=== PATIENT | male | born 1955 | race Caucasian/White ===

== ENCOUNTER 2017-08-05 16:33 | Observation (INO) | payer OTHER ==
--- NOTE | 2017-08-05 16:50 | PDOC ---
Rapid Medical Evaluation Time Seen by Provider: 08/05/17 16:48 Medical Evaluation: 08/05/17 16:48 I have performed a brief in person evaluation of this patient. The patient presents with chief complaint of : right rib pain after slip and fall in the bath tub hit right side on the tub edge. no head trauma. no dizzyness. Pertinent PE findings: TTP right rib area midaxilary line I have ordered the following: right ribs , chest xray The patient will proceed to the ER for further evaluation. 08/05/17 18:03 08/05/17 18:05 Discharge Disposition - Diagnosis Chest wall contusion Qualifiers: Encounter type: initial encounter Laterality: right Qualified Code(s): S20.211A - Contusion of right front wall of thorax, initial encounter - Discharge Dispostion Condition at time of disposition: Good - Referrals Referrals: Emmanuel Ibarra MD [Primary Care Provider] - - Patient Instructions Printed Discharge Instructions: Contusion Additional Instructions: Your x-ray was negative for fracture. Take Tylenol or Motrin as needed for pain until pain resolves - Post Discharge Activity
[2017-08-05] MEDS ORDERED: IBUPROFEN 400 MG TABLET (FP) PO ONE (17:41)
--- NOTE | 2017-08-05 17:49 | PDOC ---
History of Present Illness - General Chief Complaint: Injury Stated Complaint: PAIN Time Seen by Provider: 08/05/17 16:48 History Source: Patient - History of Present Illness Severity: moderate Associated Symptoms: denies: shortness of breath Past History - Past Medical History Allergies/Adverse Reactions: Allergies Allergy/AdvReac Type Severity Reaction Status Date / Time No Known Allergies Allergy Verified 08/05/17 16:49 COPD: No Diabetes: Yes HTN: Yes Hypercholesterolemia: Yes - Suicide/Smoking/Psychosocial Hx Smoking History: Never smoked Have you smoked in the past 12 months: No Information on smoking cessation initiated: No Hx Alcohol Use: No Drug/Substance Use Hx: No Substance Use Type: None Review of Systems - Review of Systems Respiratory: No: Cough, Shortness of Breath, Wheezing Cardiac (ROS): Yes: Chest Pain. No: Lightheadedness, Palpitations, Syncope *Physical Exam - Vital Signs Last Vital Signs Temp Pulse Resp BP Pulse Ox 97.6 F 80 12 140/71 100 08/05/17 16:49 08/05/17 16:49 08/05/17 16:49 08/05/17 16:49 08/05/17 16:49 - Physical Exam General Appearance: Yes: Appropriately Dressed. No: Apparent Distress Neck: positive: Supple, Other (significant crepitus to R supraclavicular fossa) . negative: Tender Respiratory/Chest: positive: Chest Tender (no step-offs), Lungs Clear, Normal Breath Sounds. negative: Respiratory Distress Cardiovascular: positive: Regular Rate, S1, S2 Integumentary: positive: Dry, Warm Neurologic: positive: Fully Oriented, Alert, Normal Mood/Affect Medical Decision Making - Medical Decision Making 08/05/17 17:48 52-year-old male history of diabetes and high blood pressure, here with right chest pain after falling in tub yesterday. States he slipped and fell striking right chest against edge of tub. States pain worse with deep inspiration, otherwise no shortness of breath. Denies hitting head or LOC. No headache, dizziness, nausea, vomiting and not on blood thinners. See exam High suspicion for rib fx w/ subcutaneous air Stable in ED w/ no resp distress -xray pending -transfer to main ED 08/05/17 18:11 Xray w/ possibly R 7th rib fracture w/ significant subcutaneous emphysema confirmed. Patient remained stable in ED, will transfer over to maintain ED. Dr. Gregorio aware *DC/Admit/Observation/Transfer Diagnosis at time of Disposition: Chest wall contusion Qualifiers: Encounter type: initial encounter Laterality: right Qualified Code(s): S20.211A - Contusion of right front wall of thorax, initial encounter - Discharge Dispostion Condition at time of disposition: Good - Referrals Referrals: Emmanuel Ibarra MD [Primary Care Provider] - - Patient Instructions Printed Discharge Instructions: Contusion Additional Instructions: Your x-ray was negative for fracture. Take Tylenol or Motrin as needed for pain until pain resolves - Post Discharge Activity
[2017-08-05] MEDS ORDERED: IBUPROFEN 600 MG TABLET (FP) PO ONE (18:25)
--- NOTE | 2017-08-05 19:00 | PDOC ---
*Physical Exam - Vital Signs Last Vital Signs Temp Pulse Resp BP Pulse Ox 97.6 F 80 12 140/71 100 08/05/17 16:49 08/05/17 16:49 08/05/17 16:49 08/05/17 16:49 08/05/17 16:49 <Misty Gregorio - Last Filed: 08/05/17 19:00> - Vital Signs Last Vital Signs Temp Pulse Resp BP Pulse Ox 97.6 F 80 12 140/71 100 08/05/17 16:49 08/05/17 16:49 08/05/17 16:49 08/05/17 16:49 08/05/17 16:49 - Physical Exam Comments: 08/05/17 19:29 The patient is a 52 year old male, with a significant past medical history of diabetes and high blood pressure, who presents to the emergency department with right sided chest pain. He reports that he slipped and fell in the tub yesterday and hit the right side of his chest against the edge of the tub. He states that the pain is worse with deep inspiration. Denies hitting head or LOC. It is noted that the patient has 10% pneumothorax currently, as well as 3 fractured ribs on the right side. The patient denies shortness of breath, headache and dizziness. Denies fever, chills, nausea, vomit, diarrhea and constipation. Allergies: None Past surgical history: None reported Social history: No alcohol, tobacco or drug use reported GENERAL: Awake, alert, and fully oriented, in no acute distress HEAD: No signs of trauma, normocephalic, atraumatic EYES: PERRLA, EOMI, sclera anicteric, conjunctiva clear ENT: Auricles normal inspection, hearing grossly normal, nares patent, oropharynx clear without exudates. Moist mucosa NECK: Neck: positive: Supple, Other (significant crepitus to R supraclavicular fossa). LUNGS: No distress, speaks full sentences, clear to auscultation bilaterally CHEST: (+) Chest Tender (no step-offs) HEART: Regular rate and rhythm, normal S1 and S2, no murmurs, rubs or gallops, peripheral pulses normal and equal bilaterally. ABDOMEN: Soft, nontender, normoactive bowel sounds. No guarding, no rebound. No masses EXTREMITIES : Normal inspection, Normal range of motion, no edema. No clubbing or cyanosis. NEUROLOGICAL: Cranial nerves II through XII grossly intact. Normal speech, normal gait, no focal sensorimotor deficits SKIN: Warm, Dry, normal turgor, no rashes or lesions noted <Montez Molina - Last Filed: 08/05/17 19:37> ED Treatment Course - Medications Given in the ED: ED Medications Discontinued Medications Generic Name Dose Route Start Last Admin Trade Name Freq PRN Reason Stop Dose Admin Ibuprofen 800 mg 08/05/17 17:41 08/05/17 18:25 Motrin - PO 08/05/17 17:42 800 mg ONCE ONE Administration <Misty Gregorio - Last Filed: 08/05/17 19:00> - LABORATORY CBC & Chemistry Diagram: 08/05/17 19:00 08/05/17 19:00 - Medications Given in the ED: ED Medications Discontinued Medications Generic Name Dose Route Start Last Admin Trade Name Freq PRN Reason Stop Dose Admin Ibuprofen 800 mg 08/05/17 17:41 08/05/17 18:25 Motrin - PO 08/05/17 17:42 800 mg ONCE ONE Administration <Montez Molina - Last Filed: 08/05/17 19:37> Medical Decision Making - Medical Decision Making 08/05/17 18:57 62-year-old male who fell yesterday in the bathroom tile when he slipped and hit right side of his rib cage. He put ice on the area, but he had persistent pain and came to the emergency department. In fast track. He had chest x-ray and rib x-rays that showed subcutaneous air and labs were fractures. I spoke to the radiologist, . there is a very small pneumothorax February last Patient will be admitted for incentive spirometer, pain control and repeat imaging <Misty Gregorio - Last Filed: 08/05/17 19:00> *DC/Admit/Observation/Transfer - Discharge Dispostion Admit: Yes <Misty Gregorio - Last Filed: 08/05/17 19:00> <Montez Molina - Last Filed: 08/05/17 19:37> Diagnosis at time of Disposition: Pneumothorax on right Chest wall contusion Qualifiers: Encounter type: initial encounter Laterality: right Qualified Code(s): S20.211A - Contusion of right front wall of thorax, initial encounter Multiple fractures of ribs of right side Qualifiers: Encounter type: initial encounter Fracture type: closed Qualified Code(s): S22.41XA - Multiple fractures of ribs, right side, initial encounter for closed fracture Subcutaneous air Qualifiers: Encounter type: initial encounter Qualified Code(s): T79.7XXA - Traumatic subcutaneous emphysema, initial encounter - Discharge Dispostion Condition at time of disposition: Good - Referrals Referrals: Emmanuel Ibarra MD [Primary Care Provider] - - Patient Instructions Printed Discharge Instructions: Contusion Additional Instructions: Your x-ray was negative for fracture. Take Tylenol or Motrin as needed for pain until pain resolves - Post Discharge Activity
[2017-08-05 19:29] LABS: BASO % 0.2 % (0-2.0); EOS % 0.5 % (0-4.5); HEMOGLOBIN 12.6 GM/dL (11.7-16.9); LYMPH % 19.7 % (8-40); MCH 34.2 pg (25.7-33.7); MCHC 34.1 g/dl (32.0-35.9); MEAN CELL VOLUME 100.4 fl (80-96); MEAN PLT VOLUME 8.4 fl (7.5-11.1); MONO % 5.8 % (3.8-10.2); NEUT % 73.8 % (42.8-82.8); PLATELET COUNT 199 K/MM3 (134-434); RBC 3.69 M/mm3 (4.00-5.60); RDW 13.5 % (11.9-15.9); WHITE BLOOD COUNT 6.8 K/mm3 (4.0-10.0)
[2017-08-05 19:51] LABS: ALBUMIN 4.2 g/dl (3.4-5.0); ALK PHOS 87 U/L (45-117); ANION GAP 10 (8-16); BILIRUBIN,TOTAL 0.5 mg/dL (0.2-1.0); BLOOD UREA NITROGEN 15 mg/dL (7-18); CALCIUM 8.6 mg/dL (8.5-10.1); CHLORIDE 100 mmol/L (98-107); CO2 24 mmol/L (21-32); GLUCOSE,RANDOM 197 mg/dL (74-106); POTASSIUM 4.1 mmol/L (3.5-5.1); SGOT/AST 58 U/L (15-37); SGPT/ALT 62 U/L (12-78); SODIUM 134 mmol/L (136-145); TOT PROT 7.2 g/dl (6.4-8.2)
[2017-08-05 20:22] LABS: INR 1.18 (0.82-1.09); PROTHROMBIN TIME (PATIENT) 13.3 SEC (9.98-11.88)
[2017-08-05 20:53] VITALS: BMI 29.2
[2017-08-05] MEDS ORDERED: PNEUMOC 13-VAL CONJ-DIP CRM/PF 0.5 ML DISP.SYRIN IM ONE (20:54)
[2017-08-05] MEDS ORDERED: FLU VACCINE QUAD 60 MCG/0.5 ML (MDV 17-18) IM ONE (20:54)
--- NOTE | 2017-08-05 20:59 | HP ---
Admitting History and Physical - Primary Care Physician PCP: Aleyda Sims - Admission History of Present Illness: 52 year old male, with a significant past medical history of diabetes and high blood pressure, who presents to the emergency department with right sided chest pain. He reports that he slipped and fell in the tub yesterday and hit the right side of his chest against the edge of the tub. He states that the pain is worse with deep inspiration. Denies hitting head or LOC. It is noted that the patient has 10% pneumothorax currently, as well as 3 fractured ribs on the right side. - Past Medical History Cardiovascular: Yes: HTN Endocrine: Yes: Diabetes Mellitus - Smoking History Smoking history: Never smoked Have you smoked in the past 12 months: No - Alcohol/Substance Use Hx Alcohol Use: No Home Medications - Allergies Allergies/Adverse Reactions: Allergies Allergy/AdvReac Type Severity Reaction Status Date / Time No Known Allergies Allergy Verified 08/05/17 20:21 - Home Medications Home Medications: Ambulatory Orders Aspirin [ASA -] 81 mg PO DAILY 08/05/17 Losartan Potassium 50 mg PO DAILY 08/05/17 Simvastatin 20 mg PO DAILY 08/05/17 metFORMIN HCL [Glucophage -] 500 mg PO BID 08/05/17 Physical Examination Vital Signs: Vital Signs Temperature 97.6 F 08/05/17 16:49 Pulse Rate 80 08/05/17 16:49 Respiratory Rate 12 08/05/17 16:49 Blood Pressure 140/71 08/05/17 16:49 O2 Sat by Pulse Oximetry (%) 100 08/05/17 16:49 Constitutional: Yes: Calm HENT: Yes: Atraumatic Neck: Yes: Supple Cardiovascular: Yes: Regular Rate and Rhythm Respiratory: Yes: Rhonchi, Other (R chest wall tenderness no bruise) Gastrointestinal: Yes: Normal Bowel Sounds Extremities: Yes: WNL Neurological: Yes: Alert Labs: CBC, BMP 08/05/17 19:00 08/05/17 19:00 Problem List - Problems (1) Chest wall contusion Assessment/Plan: prn pain meds doing well in breathing Code(s): S20.219A - CONTUSION OF UNSPECIFIED FRONT WALL OF THORAX, INIT ENCNTR Qualifiers: Encounter type: initial encounter Laterality: right Qualified Code(s): S20.211A - Contusion of right front wall of thorax, initial encounter (2) Multiple fractures of ribs of right side Assessment/Plan: 3 ribs...lower thoracic on R side Code(s): S22.41XA - MULTIPLE FRACTURES OF RIBS, RIGHT SIDE, INIT FOR CLOS FX Qualifiers: Encounter type: initial encounter Fracture type: closed Qualified Code(s) : S22.41XA - Multiple fractures of ribs, right side, initial encounter for closed fracture (3) Pneumothorax on right Assessment/Plan: will fu cxr tomorrow incentive spirometery Code(s): J93.9 - PNEUMOTHORAX, UNSPECIFIED (4) Subcutaneous air Code(s): T79.7XXA - TRAUMATIC SUBCUTANEOUS EMPHYSEMA, INITIAL ENCOUNTER Qualifiers: Encounter type: initial encounter Qualified Code(s): T79.7XXA - Traumatic subcutaneous emphysema, initial encounter Assessment/Plan Laboratory Tests 08/05/17 08/05/17 08/05/17 19:00 19:00 19:00 WBC 6.8 RBC 3.69 L Hgb 12.6 Hct 37.0 MCV 100.4 H MCH 34.2 H MCHC 34.1 RDW 13.5 Plt Count 199 MPV 8.4 Neutrophils % 73.8 Lymphocytes % 19.7 Monocytes % 5.8 Eosinophils % 0.5 Basophils % 0.2 PT with INR 13.30 H INR 1.18 H Sodium 134 L Potassium 4.1 Chloride 100 Carbon Dioxide 24 Anion Gap 10 BUN 15 Creatinine 1.0 Creat Clearance w eGFR > 60 Random Glucose 197 H Calcium 8.6 Total Bilirubin 0.5 AST 58 H ALT 62 Alkaline Phosphatase 87 Total Protein 7.2 Albumin 4.2 Active Medications Generic Name Dose Route Start Last Admin Trade Name Freq PRN Reason Stop Dose Admin Atorvastatin Calcium 10 mg 08/05/17 22:00 08/05/17 23:02 Lipitor - PO 10 mg HS VICKY Administration Ibuprofen 600 mg 08/05/17 21:04 Motrin - PO Q6H PRN FEVER Losartan Potassium 50 mg 08/06/17 10:00 08/06/17 11:11 Cozaar - PO 50 mg DAILY VICKY Administration Metformin HCl 500 mg 08/06/17 07:00 08/06/17 06:21 Glucophage - PO 500 mg BIDAC VICKY Administration
[2017-08-05] MEDS: ATORVASTATIN CA 10 MG TABLET (FP) PO SCH (23:02)
[2017-08-06] MEDS: metFORMIN HCL 500 MG TABLET (FP) PO SCH ×2 (06:21→18:26)
[2017-08-06 07:29] LABS: BASO % 0.2 % (0-2.0); EOS % 2.5 % (0-4.5); HEMATOCRIT 37.5 % (35.4-49); HEMOGLOBIN 12.6 GM/dL (11.7-16.9); LYMPH % 23.4 % (8-40); MCH 33.6 pg (25.7-33.7); MCHC 33.7 g/dl (32.0-35.9); MEAN CELL VOLUME 99.9 fl (80-96); MEAN PLT VOLUME 8.1 fl (7.5-11.1); MONO % 5.9 % (3.8-10.2); PLATELET COUNT 183 K/MM3 (134-434); RBC 3.75 M/mm3 (4.00-5.60); RDW 13.4 % (11.9-15.9); WHITE BLOOD COUNT 5.6 K/mm3 (4.0-10.0)
[2017-08-06 08:22] LABS: ALBUMIN 3.9 g/dl (3.4-5.0); ANION GAP 7 (8-16); BILIRUBIN,TOTAL 0.7 mg/dL (0.2-1.0); BLOOD UREA NITROGEN 14 mg/dL (7-18); CALCIUM 8.3 mg/dL (8.5-10.1); CHLORIDE 99 mmol/L (98-107); CO2 28 mmol/L (21-32); CREATININE 0.8 mg/dL (0.7-1.3); GLUCOSE,RANDOM 214 mg/dL (74-106); POTASSIUM 4.1 mmol/L (3.5-5.1); SGOT/AST 36 U/L (15-37); SGPT/ALT 48 U/L (12-78); SODIUM 134 mmol/L (136-145); TOT PROT 6.7 g/dl (6.4-8.2)
[2017-08-06 08:23] LABS: ALK PHOS 81 U/L (45-117)
[2017-08-06] MEDS ORDERED: PATIENT'S OWN MEDICATION (NON-FORMULARY) (Simvastatin [Simvastatin] 20 MG) PO SCH (10:00)
--- NOTE | 2017-08-06 10:11 | CON.PULM ---
Consult Consult Specialty:: PULM/CCM Referred by:: BINDU Reason for Consultation:: PTX - History of Present Illness Chief Complaint: S/P FALL : RIGHT CP History of Present Illness: 52 M, past medical history of diabetes and high blood pressure. S/P mechanical fall in his bathtub yesterday. He reports hitting his right chest wall. CXR: Rib fracture x 3, 10% Right PTX. Patient is in NAD on RA. He does report some right rib cage discomfort with movement and deep breathing. - History Source History Provided By: Patient Limitations to Obtaining History: No Limitations - Past Medical History Cardio/Vascular: Yes: HTN Endocrine: Yes: Diabetes Mellitus - Alcohol/Substance Use Hx Alcohol Use: No - Smoking History Smoking history: Never smoked Have you smoked in the past 12 months: No Home Medications - Allergies Allergies/Adverse Reactions: Allergies Allergy/AdvReac Type Severity Reaction Status Date / Time No Known Allergies Allergy Verified 08/05/17 20:21 - Home Medications Home Medications: Ambulatory Orders Aspirin [ASA -] 81 mg PO DAILY 08/05/17 Losartan Potassium 50 mg PO DAILY 08/05/17 Simvastatin 20 mg PO DAILY 08/05/17 metFORMIN HCL [Glucophage -] 500 mg PO BID 08/05/17 Review of Systems - Review of Systems Constitutional: denies: Chills, Fever, Malaise, Unintentional Wgt. Loss, Weakness Eyes: reports: No Symptoms HENT: reports: No Symptoms Neck: reports: No Symptoms Cardiovascular: reports: Chest Pain. denies: Palpitations, Shortness of Breath Respiratory: reports: SOB. denies: Cough, Exercise Intolerance, Hemoptysis, Orthopnea, PND, Snoring, SOB on Exertion, Wheezing Gastrointestinal: reports: No Symptoms Genitourinary: reports: No Symptoms Breasts: reports: No Symptoms Reported Musculoskeletal: reports: No Symptoms Integumentary: reports: No Symptoms Neurological: reports: No Symptoms Endocrine: reports: No Symptoms Hematology/Lymphatic: reports: No Symptoms Psychiatric: reports: No Symptoms Physical Exam Vital Sings: Vital Signs Temperature 97.9 F 08/06/17 05:00 Pulse Rate 64 08/06/17 05:00 Respiratory Rate 18 08/06/17 05:00 Blood Pressure 137/72 08/06/17 05:00 O2 Sat by Pulse Oximetry (%) 96 08/05/17 22:00 Constitutional: Yes: No Distress, Calm Eyes: Yes: Conjunctiva Clear, EOM Intact HENT: Yes: Atraumatic, Normocephalic Neck: Yes: Supple, Trachea Midline Cardiovascular: Yes: Regular Rate and Rhythm Respiratory: Yes: CTA Bilaterally. No: Accessory Muscle Use, Cough, Rales, Rhonchi, SOB, SOB on Exertion, Stridor, Tachypnea, Wheezes ...Inspection: Yes: WNL ...Palpation: Yes: Subcutaneous Emphysema, Tenderness ...Clubbing: No Gastrointestinal: Yes: Normal Bowel Sounds, Soft Renal/: Yes: WNL Breast(s): Yes: WNL Musculoskeletal: Yes: WNL Extremities: Yes: WNL Edema: No Peripheral Pulses WNL: Yes Integumentary: Yes: WNL Neurological: Yes: WNL, Alert, Oriented ...Motor Strength: WNL Psychiatric: Yes: WNL, Alert, Oriented Labs: CBC, BMP 08/06/17 06:00 08/06/17 06:00 Imaging - Results Chest X-ray: Report Reviewed, Image Reviewed Problem List - Problems (1) Chest wall contusion Code(s): S20.219A - CONTUSION OF UNSPECIFIED FRONT WALL OF THORAX, INIT ENCNTR Qualifiers: Encounter type: initial encounter Laterality: right Qualified Code(s): S20.211A - Contusion of right front wall of thorax, initial encounter (2) Multiple fractures of ribs of right side Code(s): S22.41XA - MULTIPLE FRACTURES OF RIBS, RIGHT SIDE, INIT FOR CLOS FX Qualifiers: Encounter type: initial encounter Fracture type: closed Qualified Code(s) : S22.41XA - Multiple fractures of ribs, right side, initial encounter for closed fracture (3) Pneumothorax on right Code(s): J93.9 - PNEUMOTHORAX, UNSPECIFIED (4) Subcutaneous air Code(s): T79.7XXA - TRAUMATIC SUBCUTANEOUS EMPHYSEMA, INITIAL ENCOUNTER Qualifiers: Encounter type: initial encounter Qualified Code(s): T79.7XXA - Traumatic subcutaneous emphysema, initial encounter Assessment/Plan Supplemental O2 Pain control Incentive Spirometry Repeat CXR this afternoon: If PTX Stable or improved can likely D/C Home VTE prophylaxis Will follow. Thank you. Dr Del Rio
[2017-08-06] MEDS: LOSARTAN POTASSIUM 50 MG TABLET (FP) PO SCH (11:11)
--- NOTE | 2017-08-06 11:29 | EKG ---
Test Reason : Blood Pressure : / mmHG Vent. Rate : 082 BPM Atrial Rate : 082 BPM P-R Int : 154 ms QRS Dur : 086 ms QT Int : 382 ms P-R-T Axes : 057 001 067 degrees QTc Int : 446 ms NORMAL SINUS RHYTHM NORMAL ECG WHEN COMPARED WITH ECG OF 29-SEP-2009 12:21, NO SIGNIFICANT CHANGE WAS FOUND Confirmed by MD Lorenzo Daniel ([id number]) on 08/06/2017 11:29:14 AM Referred By: Confirmed By:Syed Lorenzo MD
--- NOTE | 2017-08-06 15:53 | PN ---
Progress Note (short form) - Note Progress Note: Pt seen and examined. He is a 62 year old male pt 1 day s/p fall on the tub, c/ o pain R flank. In the ER xrays were done which confirmed 3 right lower thoracic rib fractures. 10% pneumothorax No trouble breathing Mild pain in the right flank with deep inspiration Xrays- as above Imp-3 right lower thoracic rib fractures. No trouble breathing. Mild pain. Rec-NTD from an orthopedic pov. Will follow PRN
--- NOTE | 2017-08-06 18:07 | PN ---
Progress Note, Physician History of Present Illness: feeling good - Current Medication List Current Medications: Active Medications Atorvastatin Calcium (Lipitor -) 10 mg PO HS [facility] Last Admin: 08/05/17 23:02 Dose: 10 mg Ibuprofen (Motrin -) 600 mg PO Q6H PRN PRN Reason: FEVER Losartan Potassium (Cozaar -) 50 mg PO DAILY [facility] Last Admin: 08/06/17 11:11 Dose: 50 mg Metformin HCl (Glucophage -) 500 mg PO BIDAC [facility] Last Admin: 08/06/17 06:21 Dose: 500 mg - Objective Vital Signs: Vital Signs Temperature 97.5 F L 08/06/17 17:53 Pulse Rate 72 08/06/17 17:53 Respiratory Rate 18 08/06/17 17:53 Blood Pressure 148/82 08/06/17 17:53 O2 Sat by Pulse Oximetry (%) 98 08/06/17 13:01 Constitutional: Yes: No Distress HENT: Yes: Atraumatic Neck: Yes: Supple Cardiovascular: Yes: Regular Rate and Rhythm Respiratory: Yes: CTA Bilaterally Gastrointestinal: Yes: Normal Bowel Sounds Musculoskeletal: Yes: Other (chest wall miniimal tenderness R no bruise some air in tissues) Extremities: Yes: WNL Neurological: Yes: Alert, Oriented Labs: CBC, BMP 08/06/17 06:00 08/06/17 06:00 INR, PTT INR 1.18 (0.82-1.09) H 08/05/17 19:00 Problem List - Problems (1) Chest wall contusion Assessment/Plan: prn pain meds doing well in breathing Code(s): S20.219A - CONTUSION OF UNSPECIFIED FRONT WALL OF THORAX, INIT ENCNTR Qualifiers: Encounter type: initial encounter Laterality: right Qualified Code(s): S20.211A - Contusion of right front wall of thorax, initial encounter (2) Multiple fractures of ribs of right side Assessment/Plan: 3 ribs...lower thoracic on R side Code(s): S22.41XA - MULTIPLE FRACTURES OF RIBS, RIGHT SIDE, INIT FOR CLOS FX Qualifiers: Encounter type: initial encounter Fracture type: closed Qualified Code(s) : S22.41XA - Multiple fractures of ribs, right side, initial encounter for closed fracture (3) Pneumothorax on right Assessment/Plan: will fu cxr done today, report pending incentive spirometery Code(s): J93.9 - PNEUMOTHORAX, UNSPECIFIED (4) Subcutaneous air Code(s): T79.7XXA - TRAUMATIC SUBCUTANEOUS EMPHYSEMA, INITIAL ENCOUNTER Qualifiers: Encounter type: initial encounter Qualified Code(s): T79.7XXA - Traumatic subcutaneous emphysema, initial encounter
[2017-08-06] MEDS: IBUPROFEN 600 MG TABLET (FP) PO PRN (18:25)
[2017-08-06] MEDS: ATORVASTATIN CA 10 MG TABLET (FP) PO SCH (21:27)
[2017-08-07] MEDS: metFORMIN HCL 500 MG TABLET (FP) PO SCH (06:40)
--- NOTE | 2017-08-07 10:05 | PN ---
Progress Note (short form) - Note Progress Note: IMROVING LESS PAIN USING INCENTIVE SPIROMTER WITH MINIMAL DISCOMFORT PLAN: DC TO HOME IF MEDICALLY OKAY, F/U X 2 WEEKS
[2017-08-07] MEDS: LOSARTAN POTASSIUM 50 MG TABLET (FP) PO SCH (10:23)
[2017-08-07] MEDS: IBUPROFEN 600 MG TABLET (FP) PO PRN (10:23)
--- NOTE | 2017-08-07 12:16 | DS ---
Physical Examination Vital Signs: Vital Signs Temperature 98.8 F 08/07/17 05:00 Pulse Rate 73 08/07/17 05:00 Respiratory Rate 20 08/07/17 05:00 Blood Pressure 135/75 08/07/17 05:00 O2 Sat by Pulse Oximetry (%) 98 08/07/17 05:00 Labs: CBC, BMP 08/06/17 06:00 08/06/17 06:00 Discharge Summary Reason For Visit: SUBQ EMPHYSEMA, MULT.FRACTURES OF RIB RT,CONTUSION Current Active Problems Chest wall contusion (Acute) Multiple fractures of ribs of right side (Acute) Pneumothorax on right (Acute) Subcutaneous air (Acute) Condition: Good - Instructions Diet, Activity, Other Instructions: Your x-ray was negative for fracture. Take Tylenol or Motrin as needed for pain until pain resolves Referrals: Emmanuel Ibarra MD [Primary Care Provider] - - Home Medications Comprehensive Discharge Medication List: Ambulatory Orders Aspirin [ASA -] 81 mg PO DAILY 08/05/17 Losartan Potassium 50 mg PO DAILY 08/05/17 Simvastatin 20 mg PO DAILY 08/05/17 metFORMIN HCL [Glucophage -] 500 mg PO BID 08/05/17
[2017-08-07 14:35] VITALS: BP 140/74; PULSE 73; TEMP 97.8
--- NOTE | 2017-08-07 15:13 | PN ---
Progress Note (short form) - Note Progress Note: PULMONARY VSS/AFEBRILE WANTS TO GO HOME NO SOB ANICTERIC SUB-Q EMPHYSEMA ON RIGHT S1S2 BS+ NO EDEMA LABS/IMAGES/NOTES REVIEWED OK FOR D/C R JENNIFER PHELPS
== END 2017-08-07 16:44 | disposition home or self-care (01) ==
LOC: JERFT 16:33 → JER 16:33 → INTOOBSV 19:03 → JERBED 19:03 → J7W 20:38
PROVIDERS: ADMIT Internal Medicine; ATTEND Internal Medicine
DX: S20.211A Contusion of right front wall of thorax, initial encounter (principal); S22.41XA Multiple fractures of ribs, right side, initial encounter for closed fracture; T79.7XXA Traumatic subcutaneous emphysema, initial encounter; I10 Essential (primary) hypertension; E11.9 Type 2 diabetes mellitus without complications; E78.5 Hyperlipidemia, unspecified; J93.9 Pneumothorax, unspecified; Z79.82 Long term (current) use of aspirin; Z79.84 Long term (current) use of oral hypoglycemic drugs; W01.198A Fall on same level from slipping, tripping and stumbling with subsequent striking against other object, initial encounter; Y93.E1 Activity, personal bathing and showering; Y92.002 Bathroom of unspecified non-institutional (private) residence as the place of occurrence of the external cause
CPT/HCPCS: 36415; 71046-TC-FY; 71101-TC-RT-FY; 80053; 82550; 82553; 82962; 84484; 85025; 85610; 93005; 93010; 94010; 99285-25; G0378

== ENCOUNTER 2021-09-16 22:16 | Inpatient (IN) | payer MEDICARE, OTHER ==
[2021-09-16 22:35] VITALS: BMI 26.6
[2021-09-16] MEDS ORDERED: SODIUM CHLORIDE 2,313 ML IV ONE (23:12)
[2021-09-16] MEDS ORDERED: ACETAMINOPHEN 325 MG TABLET (FP) PO ONE (23:13)
[2021-09-16] MEDS ORDERED: SODIUM CHLORIDE 0.9% 500 ML INFUS.BAG IV ONE (23:29)
[2021-09-16] MEDS ORDERED: ACETAMINOPHEN 325 MG TABLET (FP) ONE (23:54)
[2021-09-16 23:58] LABS: BASO % 0.2 % (0-2.0); EOS % 0.1 % (0-4.5); HEMATOCRIT 32.7 % (35.4-49); HEMOGLOBIN 11.4 GM/dL (11.7-16.9); LYMPH % 4.9 % (8-40); MCHC 34.9 g/dl (32.0-35.9); MEAN CELL VOLUME 91.9 fl (80-96); MEAN PLT VOLUME 7.9 fl (7.5-11.1); MONO % 6.3 % (3.8-10.2); NEUT % 88.5 % (42.8-82.8); PLATELET COUNT 263 10^3/uL (134-434); RBC 3.56 M/mm3 (4.00-5.60); RDW 13.3 % (11.9-15.9); WHITE BLOOD COUNT 10.8 K/mm3 (4.0-10.0)
[2021-09-17 00:02] LABS: VENOUS BASE EXCESS -2.8 mmol/L (-2-2); VENOUS O2 SATURATION 26.5 % (70-80); VENOUS PCO2 31.9 mmHg (38-52); VENOUS PH 7.43 (7.310-7.410)
[2021-09-17 00:18] LABS: CHLORIDE 101 mmol/L (98-107); SODIUM 135 mmol/L (136-145)
[2021-09-17 00:20] LABS: CALCIUM 8.9 mg/dL (8.5-10.1)
[2021-09-17 00:22] LABS: ALBUMIN 3.4 g/dl (3.4-5.0); ANION GAP 10 MMOL/L (8-16); CO2 24 mmol/L (21-32); GLUCOSE,RANDOM 302 mg/dL (74-106)
[2021-09-17 00:24] LABS: CREATININE 1.1 mg/dL (0.55-1.3); SGOT/AST 11 U/L (15-37); SGPT/ALT 16 U/L (13-61)
[2021-09-17 00:26] LABS: BILIRUBIN,TOTAL 0.7 mg/dL (0.2-1); TOT PROT 7.3 g/dl (6.4-8.2)
[2021-09-17 00:27] LABS: ALK PHOS 115 U/L (45-117)
[2021-09-17 00:53] LABS: INR 1.35 (0.83-1.09); PROTHROMBIN TIME (PATIENT) 15.6 SEC (9.7-13.0)
[2021-09-17 00:56] LABS: ACTIVATED PTT 38.3 SECONDS (25.2-36.5)
[2021-09-17] MEDS ORDERED: VANCOMYCIN 1 GM in D5W (PRE-DOCKED) 1,000 MG/250 ML IVPB ONE (01:09)
[2021-09-17] MEDS ORDERED: PIPERACILLIN/TAZOB 4.5 GM 4.5 GM in DEXTROSE 5%-WATER 100 ML IVPB ONE (01:09)
[2021-09-17] MEDS ORDERED: VANCOMYCIN 1 GRAM (PRE-DOCKED) 1,000 MG/250 ML BAG IVPB ONE (01:16)
[2021-09-17] MEDS ORDERED: PIPERACILLIN/TAZOB 4.5 GM 4.5 GM/100 ML BAG IVPB ONE (01:16)
[2021-09-17] MEDS: SODIUM CHLORIDE 1,000 ML IV SCH (04:33)
[2021-09-17] MEDS: INSULIN SLIDING SCALE (NOVOLOG) 1 VIAL SQ SCH ×4 (06:22→22:05)
[2021-09-17] MEDS ORDERED: DEXTROSE 5%-WATER - 50 ML IVPB ONE ×3 (08:59→21:41)
[2021-09-17] MEDS ORDERED: PIPERACILLIN/TAZOBACTAM 3.375 GM VIAL IVPB ONE ×3 (08:59→21:41)
[2021-09-17] MEDS: PIPERACILLIN/TAZOB 3.375 GM 3.375 GM in DEXTROSE 5%-WATER - 50 ML IVPB SCH ×3 (09:07→22:05)
[2021-09-17] MEDS: ENOXAPARIN NA (PORCINE) 40 MG/0.4 ML DISP.SYRIN SQ SCH (09:08)
[2021-09-17 09:29] LABS: URINE APPEARANCE CLOUDY; URINE BILIRUBIN NEGATIVE (NEGATIVE); URINE COLOR YELLOW
[2021-09-17 09:30] LABS: EPI CELLS 8.9 /uL (0-25.1); URINE KETONE 15 mg/dl (NEGATIVE); URINE LEUK ESTERASE NEGATIVE (NEGATIVE); URINE NITRITE NEGATIVE (NEGATIVE); URINE PROTEIN 1+ (NEGATIVE); URINE RBC 53.3 /uL (0-23.9); URINE UROBILINOGEN 0.2 mg/dL (0.2-1.0); URINE WBC 9.6 /uL (0-25.8)
[2021-09-17 09:30] LABS: BASO % 0.1 % (0-2.0); EOS % 0.1 % (0-4.5); HEMATOCRIT 31.6 % (35.4-49); HEMOGLOBIN 10.7 GM/dL (11.7-16.9); LYMPH % 7.1 % (8-40); MCH 31.3 pg (25.7-33.7); MCHC 33.8 g/dl (32.0-35.9); MEAN CELL VOLUME 92.5 fl (80-96); MEAN PLT VOLUME 7.9 fl (7.5-11.1); MONO % 7.3 % (3.8-10.2); NEUT % 85.4 % (42.8-82.8); PLATELET COUNT 268 10^3/uL (134-434); RBC 3.42 M/mm3 (4.00-5.60); RDW 13.3 % (11.9-15.9); RETICULOCYTES 1.15 % (0.5-1.5)
[2021-09-17 09:31] LABS: URINE BACTERIA 7.1 /uL (0-1359)
[2021-09-17 09:58] LABS: BLOOD UREA NITROGEN 18.6 mg/dL (7-18)
[2021-09-17] MEDS ORDERED: VANCOMYCIN 1 GRAM (PRE-DOCKED) 1,000 MG/250 ML BAG IVPB SCH ×2 (10:00→17:00)
[2021-09-17 10:01] LABS: CALCIUM 8.8 mg/dL (8.5-10.1)
[2021-09-17 10:02] LABS: PHOSPHOROUS 2.1 mg/dL (2.5-4.9)
[2021-09-17 10:03] LABS: BILIRUBIN,TOTAL 0.6 mg/dL (0.2-1); MAGNESIUM 1.6 mg/dL (1.8-2.4); TOT PROT 6.6 g/dl (6.4-8.2)
[2021-09-17 10:07] LABS: ERYTHROCYTE SEDIMENTATION RATE 107 mm/hr (0-20)
[2021-09-17 10:08] LABS: CREATININE 0.9 mg/dL (0.55-1.3)
[2021-09-17] MEDS: VANCOMYCIN/WATER FOR INJ (PEG) 1,000 MG/250 ML BAG IVPB SCH ×2 (13:31→22:36)
[2021-09-17] MEDS ORDERED: PIPERACILLIN/TAZOB 3.375 GM 3.375 GM in DEXTROSE 5%-WATER - 50 ML IVPB SCH (20:00)
[2021-09-18] MEDS: SODIUM CHLORIDE 1,000 ML IV SCH ×2 (00:41→19:53)
[2021-09-18] MEDS ORDERED: PIPERACILLIN/TAZOBACTAM 3.375 GM VIAL IVPB ONE ×3 (03:06→22:08)
[2021-09-18] MEDS ORDERED: DEXTROSE 5%-WATER - 50 ML IVPB ONE ×3 (03:07→22:09)
[2021-09-18] MEDS: PIPERACILLIN/TAZOB 3.375 GM 3.375 GM in DEXTROSE 5%-WATER - 50 ML IVPB SCH ×2 (03:14→22:14)
[2021-09-18] MEDS: INSULIN SLIDING SCALE (NOVOLOG) 1 VIAL SQ SCH ×4 (06:02→22:19)
[2021-09-18] MEDS: ENOXAPARIN NA (PORCINE) 40 MG/0.4 ML DISP.SYRIN SQ SCH (11:02)
[2021-09-18] MEDS ORDERED: PIPERACILLIN/TAZOB 3.375 GM 3.375 GM in DEXTROSE 5%-WATER - 50 ML IVPB ONE (15:10)
[2021-09-18] MEDS ORDERED: ACETAMINOPHEN 1000 MG/100 ML BAG IVPB PRN (16:11)
[2021-09-18] MEDS: morphine SULFATE 4 MG/ML VIAL IVPUSH PRN (16:50)
[2021-09-18 17:02] LABS: BASO % 0.2 % (0-2.0); EOS % 0.1 % (0-4.5); HEMATOCRIT 30.3 % (35.4-49); HEMOGLOBIN 10.2 GM/dL (11.7-16.9); LYMPH % 7.6 % (8-40); MCH 31.1 pg (25.7-33.7); MCHC 33.5 g/dl (32.0-35.9); MEAN CELL VOLUME 92.9 fl (80-96); MEAN PLT VOLUME 7.9 fl (7.5-11.1); MONO % 7.4 % (3.8-10.2); NEUT % 84.7 % (42.8-82.8); PLATELET COUNT 294 10^3/uL (134-434); RBC 3.26 M/mm3 (4.00-5.60); RDW 13.3 % (11.9-15.9); WHITE BLOOD COUNT 11.4 K/mm3 (4.0-10.0)
[2021-09-18] MEDS ORDERED: VANCOMYCIN 1 GRAM (PRE-DOCKED) 1,000 MG/250 ML BAG IVPB SCH (17:15)
[2021-09-18 17:21] LABS: ALBUMIN 2.5 g/dl (3.4-5.0); CALCIUM 8.5 mg/dL (8.5-10.1)
[2021-09-18 17:24] LABS: CREATININE 0.9 mg/dL (0.55-1.3)
[2021-09-18 17:26] LABS: BILIRUBIN,TOTAL 0.6 mg/dL (0.2-1); TOT PROT 6.3 g/dl (6.4-8.2)
[2021-09-18] MEDS: VANCOMYCIN/WATER FOR INJ (PEG) 1,000 MG/250 ML BAG IVPB SCH (18:48)
[2021-09-18] MEDS: ATORVASTATIN CA 20 MG TABLET (FP) PO SCH (22:14)
[2021-09-19] MEDS: morphine SULFATE 4 MG/ML VIAL IVPUSH PRN ×2 (01:14→16:57)
[2021-09-19] MEDS ORDERED: DEXTROSE 5%-WATER - 50 ML IVPB ONE ×4 (01:55→22:03)
[2021-09-19] MEDS ORDERED: PIPERACILLIN/TAZOBACTAM 3.375 GM VIAL IVPB ONE ×4 (01:55→22:03)
[2021-09-19] MEDS: PIPERACILLIN/TAZOB 3.375 GM 3.375 GM in DEXTROSE 5%-WATER - 50 ML IVPB SCH ×4 (02:41→22:39)
[2021-09-19] MEDS: SODIUM CHLORIDE 1,000 ML IV SCH ×2 (04:09→16:36)
[2021-09-19] MEDS: VANCOMYCIN/WATER FOR INJ (PEG) 1,000 MG/250 ML BAG IVPB SCH ×2 (05:17→16:53)
[2021-09-19] MEDS: INSULIN SLIDING SCALE (NOVOLOG) 1 VIAL SQ SCH ×4 (06:03→22:38)
[2021-09-19 08:19] LABS: HEMOGLOBIN 9.7 GM/dL (11.7-16.9); MCH 31.9 pg (25.7-33.7); MCHC 34.7 g/dl (32.0-35.9); MEAN PLT VOLUME 7.5 fl (7.5-11.1); PLATELET COUNT 308 10^3/uL (134-434); RBC 3.04 M/mm3 (4.00-5.60); RDW 13.3 % (11.9-15.9)
[2021-09-19 08:42] LABS: BLOOD UREA NITROGEN 8.8 mg/dL (7-18); CALCIUM 8.1 mg/dL (8.5-10.1)
[2021-09-19 08:46] LABS: CREATININE 0.7 mg/dL (0.55-1.3)
[2021-09-19] MEDS: ENOXAPARIN NA (PORCINE) 40 MG/0.4 ML DISP.SYRIN SQ SCH (09:44)
[2021-09-19] MEDS ORDERED: POTASSIUM CHLORIDE TABS 20 MEQ TABLET.ER (FP) PO ONE (18:09)
[2021-09-19] MEDS: ACETAMINOPHEN 325 MG TABLET (FP) PO PRN (22:37)
[2021-09-19] MEDS: ATORVASTATIN CA 20 MG TABLET (FP) PO SCH (22:37)
[2021-09-19] MEDS: DOCUSATE SODIUM 100 MG CAPSULE (FP) PO SCH (22:37)
[2021-09-19] MEDS: INSULIN (LEVEMIR) 100 UNITS/ML UNITS SQ SCH (22:38)
[2021-09-20] MEDS ORDERED: DEXTROSE 5%-WATER - 50 ML IVPB ONE ×4 (04:08→21:10)
[2021-09-20] MEDS ORDERED: PIPERACILLIN/TAZOBACTAM 3.375 GM VIAL IVPB ONE ×4 (04:08→21:10)
[2021-09-20] MEDS: PIPERACILLIN/TAZOB 3.375 GM 3.375 GM in DEXTROSE 5%-WATER - 50 ML IVPB SCH ×4 (04:15→21:41)
[2021-09-20] MEDS ORDERED: VANCOMYCIN/WATER FOR INJ (PEG) 1,000 MG/200 ML BAG IVPB SCH (05:19)
[2021-09-20] MEDS: morphine SULFATE 4 MG/ML VIAL IVPUSH PRN ×3 (05:19→21:44)
[2021-09-20] MEDS: DOCUSATE SODIUM 100 MG CAPSULE (FP) PO SCH ×3 (05:20→21:44)
[2021-09-20] MEDS: VANCOMYCIN/WATER FOR INJ (PEG) 1,000 MG/200 ML BAG IVPB SCH ×2 (06:22→16:44)
[2021-09-20] MEDS: INSULIN SLIDING SCALE (NOVOLOG) 1 VIAL SQ SCH ×4 (06:22→21:43)
[2021-09-20] MEDS: VANCOMYCIN/WATER FOR INJ (PEG) 1,000 MG/250 ML BAG IVPB SCH (06:47)
[2021-09-20 07:48] LABS: BASO % 0.3 % (0-2.0); EOS % 0.5 % (0-4.5); HEMATOCRIT 27.5 % (35.4-49); HEMOGLOBIN 9.8 GM/dL (11.7-16.9); LYMPH % 11.2 % (8-40); MCH 32.4 pg (25.7-33.7); MCHC 35.5 g/dl (32.0-35.9); MEAN CELL VOLUME 91.5 fl (80-96); MEAN PLT VOLUME 7.6 fl (7.5-11.1); MONO % 7.6 % (3.8-10.2); NEUT % 80.4 % (42.8-82.8); PLATELET COUNT 362 10^3/uL (134-434); RBC 3.01 M/mm3 (4.00-5.60); RDW 13.2 % (11.9-15.9); WHITE BLOOD COUNT 9.3 K/mm3 (4.0-10.0)
[2021-09-20 08:05] LABS: CALCIUM 8.1 mg/dL (8.5-10.1)
[2021-09-20 08:06] LABS: ALBUMIN 2.2 g/dl (3.4-5.0); BLOOD UREA NITROGEN 10.6 mg/dL (7-18); MAGNESIUM 1.8 mg/dL (1.8-2.4)
[2021-09-20 08:08] LABS: CREATININE 0.8 mg/dL (0.55-1.3)
[2021-09-20 08:09] LABS: TOT PROT 6.2 g/dl (6.4-8.2)
[2021-09-20 08:10] LABS: BILIRUBIN,TOTAL 0.4 mg/dL (0.2-1)
[2021-09-20] MEDS: ENOXAPARIN NA (PORCINE) 40 MG/0.4 ML DISP.SYRIN SQ SCH (09:10)
[2021-09-20] MEDS: POLYETHYLENE GLYCOL (HEALTHYLAX) 3350 17 GM PACKET PO SCH (09:10)
[2021-09-20] MEDS: SODIUM CHLORIDE 1,000 ML IV SCH (16:45)
[2021-09-20] MEDS: INSULIN (LEVEMIR) 100 UNITS/ML UNITS SQ SCH (21:42)
[2021-09-20] MEDS: ATORVASTATIN CA 20 MG TABLET (FP) PO SCH (21:44)
[2021-09-21] MEDS ORDERED: PIPERACILLIN/TAZOBACTAM 3.375 GM VIAL IVPB ONE ×4 (02:07→20:25)
[2021-09-21] MEDS ORDERED: DEXTROSE 5%-WATER - 50 ML IVPB ONE ×4 (02:08→20:25)
[2021-09-21] MEDS: PIPERACILLIN/TAZOB 3.375 GM 3.375 GM in DEXTROSE 5%-WATER - 50 ML IVPB SCH ×4 (03:10→21:04)
[2021-09-21] MEDS: INSULIN SLIDING SCALE (NOVOLOG) 1 VIAL SQ SCH ×4 (06:03→21:05)
[2021-09-21] MEDS: DOCUSATE SODIUM 100 MG CAPSULE (FP) PO SCH ×3 (06:04→21:04)
[2021-09-21] MEDS: VANCOMYCIN/WATER FOR INJ (PEG) 1,000 MG/200 ML BAG IVPB SCH (06:04)
[2021-09-21] MEDS: SODIUM CHLORIDE 1,000 ML IV SCH ×2 (06:06→19:23)
[2021-09-21 07:11] LABS: BASO % 0.3 % (0-2.0); EOS % 1.4 % (0-4.5); HEMATOCRIT 26.9 % (35.4-49); HEMOGLOBIN 9.6 GM/dL (11.7-16.9); LYMPH % 11.8 % (8-40); MCH 32.3 pg (25.7-33.7); MCHC 35.6 g/dl (32.0-35.9); MEAN CELL VOLUME 90.8 fl (80-96); MEAN PLT VOLUME 7.5 fl (7.5-11.1); MONO % 8.4 % (3.8-10.2); NEUT % 78.1 % (42.8-82.8); PLATELET COUNT 428 10^3/uL (134-434); RBC 2.97 M/mm3 (4.00-5.60); RDW 13.2 % (11.9-15.9); WHITE BLOOD COUNT 8.1 K/mm3 (4.0-10.0)
[2021-09-21 07:30] LABS: ALBUMIN 2.2 g/dl (3.4-5.0); BLOOD UREA NITROGEN 9.9 mg/dL (7-18)
[2021-09-21 07:33] LABS: CREATININE 0.6 mg/dL (0.55-1.3); MAGNESIUM 1.5 mg/dL (1.8-2.4)
[2021-09-21 07:35] LABS: BILIRUBIN,TOTAL 0.5 mg/dL (0.2-1); TOT PROT 6.1 g/dl (6.4-8.2)
[2021-09-21] MEDS ORDERED: MAGNESIUM OXIDE 400 MG TABLET (FP) PO ONE (08:00)
[2021-09-21] MEDS: ENOXAPARIN NA (PORCINE) 40 MG/0.4 ML DISP.SYRIN SQ SCH (09:05)
[2021-09-21] MEDS: POLYETHYLENE GLYCOL (HEALTHYLAX) 3350 17 GM PACKET PO SCH (09:05)
[2021-09-21] MEDS: BACITRACIN 15 GM TUBE TOPICAL OINTMENT TP SCH ×2 (14:03→21:05)
[2021-09-21] MEDS ORDERED: INSULIN (LEVEMIR) 100 UNITS/ML UNITS SQ SCH (15:35)
[2021-09-21] MEDS ORDERED: traMADol HCL 50 MG TABLET PO PRN (15:36)
[2021-09-21] MEDS: ATORVASTATIN CA 20 MG TABLET (FP) PO SCH (21:03)
[2021-09-22] MEDS ORDERED: PIPERACILLIN/TAZOBACTAM 3.375 GM VIAL IVPB ONE ×4 (00:57→21:25)
[2021-09-22] MEDS ORDERED: DEXTROSE 5%-WATER - 50 ML IVPB ONE ×4 (00:58→21:25)
[2021-09-22] MEDS: MAGNESIUM OXIDE 400 MG TABLET (FP) PO SCH ×3 (01:13→21:36)
[2021-09-22] MEDS: PIPERACILLIN/TAZOB 3.375 GM 3.375 GM in DEXTROSE 5%-WATER - 50 ML IVPB SCH ×4 (03:03→21:36)
[2021-09-22] MEDS: SODIUM CHLORIDE 1,000 ML IV SCH ×2 (04:57→13:11)
[2021-09-22] MEDS: DOCUSATE SODIUM 100 MG CAPSULE (FP) PO SCH ×3 (06:53→21:36)
[2021-09-22] MEDS: INSULIN SLIDING SCALE (NOVOLOG) 1 VIAL SQ SCH ×4 (06:53→21:42)
[2021-09-22 08:19] LABS: BASO % 0.2 % (0-2.0); EOS % 1.2 % (0-4.5); HEMATOCRIT 27.3 % (35.4-49); HEMOGLOBIN 9.6 GM/dL (11.7-16.9); LYMPH % 12.7 % (8-40); MCHC 35.1 g/dl (32.0-35.9); MEAN CELL VOLUME 91.2 fl (80-96); MEAN PLT VOLUME 6.9 fl (7.5-11.1); MONO % 7.5 % (3.8-10.2); NEUT % 78.4 % (42.8-82.8); PLATELET COUNT 514 10^3/uL (134-434); RDW 13.1 % (11.9-15.9); WHITE BLOOD COUNT 7.6 K/mm3 (4.0-10.0)
[2021-09-22 08:38] LABS: ALBUMIN 2.4 g/dl (3.4-5.0)
[2021-09-22 08:39] LABS: BLOOD UREA NITROGEN 10.2 mg/dL (7-18); CALCIUM 8.5 mg/dL (8.5-10.1); MAGNESIUM 1.8 mg/dL (1.8-2.4)
[2021-09-22 08:41] LABS: CREATININE 0.6 mg/dL (0.55-1.3)
[2021-09-22 08:43] LABS: BILIRUBIN,TOTAL 0.3 mg/dL (0.2-1)
[2021-09-22 08:45] LABS: TOT PROT 6.3 g/dl (6.4-8.2)
[2021-09-22] MEDS: ENOXAPARIN NA (PORCINE) 40 MG/0.4 ML DISP.SYRIN SQ SCH (09:09)
[2021-09-22] MEDS: POLYETHYLENE GLYCOL (HEALTHYLAX) 3350 17 GM PACKET PO SCH (09:09)
[2021-09-22] MEDS: BACITRACIN 15 GM TUBE TOPICAL OINTMENT TP SCH ×2 (09:11→21:43)
[2021-09-22] MEDS: ACETAMINOPHEN 325 MG TABLET (FP) PO PRN (09:15)
[2021-09-22] MEDS ORDERED: BISACODYL 10 MG SUPP.RECT PR ONE (12:15)
[2021-09-22] MEDS: ATORVASTATIN CA 20 MG TABLET (FP) PO SCH (21:36)
[2021-09-22] MEDS: INSULIN (LEVEMIR) 100 UNITS/ML UNITS SQ SCH (21:43)
[2021-09-23] MEDS ORDERED: PIPERACILLIN/TAZOBACTAM 3.375 GM VIAL IVPB ONE ×4 (02:43→21:15)
[2021-09-23] MEDS ORDERED: DEXTROSE 5%-WATER - 50 ML IVPB ONE ×4 (02:43→21:15)
[2021-09-23] MEDS: SODIUM CHLORIDE 1,000 ML IV SCH (02:48)
[2021-09-23] MEDS: PIPERACILLIN/TAZOB 3.375 GM 3.375 GM in DEXTROSE 5%-WATER - 50 ML IVPB SCH ×4 (02:49→21:29)
[2021-09-23] MEDS: DOCUSATE SODIUM 100 MG CAPSULE (FP) PO SCH ×4 (06:00→21:37)
[2021-09-23] MEDS: INSULIN SLIDING SCALE (NOVOLOG) 1 VIAL SQ SCH ×4 (06:00→21:37)
[2021-09-23] MEDS: BACITRACIN 15 GM TUBE TOPICAL OINTMENT TP SCH ×2 (09:29→21:38)
[2021-09-23] MEDS: POLYETHYLENE GLYCOL (HEALTHYLAX) 3350 17 GM PACKET PO SCH (09:29)
[2021-09-23] MEDS: MAGNESIUM OXIDE 400 MG TABLET (FP) PO SCH ×2 (09:30→21:37)
[2021-09-23] MEDS: ENOXAPARIN NA (PORCINE) 40 MG/0.4 ML DISP.SYRIN SQ SCH (09:30)
[2021-09-23 10:41] LABS: BASO % 0.3 % (0-2.0); HEMATOCRIT 27.4 % (35.4-49); HEMOGLOBIN 9.6 GM/dL (11.7-16.9); LYMPH % 10.4 % (8-40); MCHC 35.1 g/dl (32.0-35.9); MEAN CELL VOLUME 91.2 fl (80-96); MEAN PLT VOLUME 7.1 fl (7.5-11.1); MONO % 6.4 % (3.8-10.2); NEUT % 81.9 % (42.8-82.8); PLATELET COUNT 605 10^3/uL (134-434); RDW 12.8 % (11.9-15.9); WHITE BLOOD COUNT 9.2 K/mm3 (4.0-10.0)
[2021-09-23 10:50] LABS: CALCIUM 8.5 mg/dL (8.5-10.1)
[2021-09-23 10:51] LABS: ALBUMIN 2.4 g/dl (3.4-5.0); BLOOD UREA NITROGEN 7.7 mg/dL (7-18); MAGNESIUM 1.8 mg/dL (1.8-2.4)
[2021-09-23 10:54] LABS: CREATININE 0.6 mg/dL (0.55-1.3)
[2021-09-23 10:55] LABS: BILIRUBIN,TOTAL 0.3 mg/dL (0.2-1); TOT PROT 6.3 g/dl (6.4-8.2)
[2021-09-23] MEDS: ATORVASTATIN CA 20 MG TABLET (FP) PO SCH (21:37)
[2021-09-23] MEDS: INSULIN (LEVEMIR) 100 UNITS/ML UNITS SQ SCH (21:38)
[2021-09-24] MEDS ORDERED: PIPERACILLIN/TAZOBACTAM 3.375 GM VIAL IVPB ONE ×4 (00:54→21:35)
[2021-09-24] MEDS ORDERED: DEXTROSE 5%-WATER - 50 ML IVPB ONE ×4 (00:55→21:35)
[2021-09-24] MEDS: SODIUM CHLORIDE 1,000 ML IV SCH ×2 (01:50→16:24)
[2021-09-24] MEDS: PIPERACILLIN/TAZOB 3.375 GM 3.375 GM in DEXTROSE 5%-WATER - 50 ML IVPB SCH ×4 (03:09→21:40)
[2021-09-24] MEDS: INSULIN SLIDING SCALE (NOVOLOG) 1 VIAL SQ SCH ×4 (06:48→22:07)
[2021-09-24] MEDS: DOCUSATE SODIUM 100 MG CAPSULE (FP) PO SCH ×3 (06:48→22:07)
[2021-09-24] MEDS: MAGNESIUM OXIDE 400 MG TABLET (FP) PO SCH ×2 (09:53→22:06)
[2021-09-24] MEDS: ENOXAPARIN NA (PORCINE) 40 MG/0.4 ML DISP.SYRIN SQ SCH (09:53)
[2021-09-24] MEDS: POLYETHYLENE GLYCOL (HEALTHYLAX) 3350 17 GM PACKET PO SCH (09:54)
[2021-09-24] MEDS: BACITRACIN 15 GM TUBE TOPICAL OINTMENT TP SCH ×2 (09:54→22:05)
[2021-09-24 10:49] LABS: BASO % 0.4 % (0-2.0); EOS % 0.8 % (0-4.5); HEMATOCRIT 27.1 % (35.4-49); HEMOGLOBIN 9.5 GM/dL (11.7-16.9); LYMPH % 11.1 % (8-40); MCH 32.4 pg (25.7-33.7); MCHC 35.2 g/dl (32.0-35.9); MONO % 6.7 % (3.8-10.2); PLATELET COUNT 616 10^3/uL (134-434); RBC 2.95 M/mm3 (4.00-5.60); RDW 13.1 % (11.9-15.9); WHITE BLOOD COUNT 8.6 K/mm3 (4.0-10.0)
[2021-09-24 10:54] LABS: ALBUMIN 2.3 g/dl (3.4-5.0); CALCIUM 8.6 mg/dL (8.5-10.1); MAGNESIUM 1.9 mg/dL (1.8-2.4)
[2021-09-24 10:55] LABS: BLOOD UREA NITROGEN 11.4 mg/dL (7-18)
[2021-09-24 10:58] LABS: CREATININE 0.7 mg/dL (0.55-1.3)
[2021-09-24 10:59] LABS: BILIRUBIN,TOTAL 0.2 mg/dL (0.2-1); TOT PROT 6.2 g/dl (6.4-8.2)
[2021-09-24] MEDS: ATORVASTATIN CA 20 MG TABLET (FP) PO SCH (22:06)
[2021-09-24] MEDS: INSULIN (LEVEMIR) 100 UNITS/ML UNITS SQ SCH (22:06)
[2021-09-25] MEDS ORDERED: DEXTROSE 5%-WATER - 50 ML IVPB ONE ×3 (00:20→14:08)
[2021-09-25] MEDS ORDERED: PIPERACILLIN/TAZOBACTAM 3.375 GM VIAL IVPB ONE ×3 (00:20→14:08)
[2021-09-25] MEDS: SODIUM CHLORIDE 1,000 ML IV SCH ×2 (01:23→11:35)
[2021-09-25] MEDS: PIPERACILLIN/TAZOB 3.375 GM 3.375 GM in DEXTROSE 5%-WATER - 50 ML IVPB SCH ×3 (02:49→14:11)
[2021-09-25] MEDS: INSULIN (LEVEMIR) 100 UNITS/ML UNITS SQ SCH (06:23)
[2021-09-25] MEDS: DOCUSATE SODIUM 100 MG CAPSULE (FP) PO SCH ×2 (06:23→13:18)
[2021-09-25] MEDS: INSULIN SLIDING SCALE (NOVOLOG) 1 VIAL SQ SCH ×2 (06:24→11:34)
[2021-09-25 08:57] LABS: BASO % 0.5 % (0-2.0); HEMATOCRIT 27.4 % (35.4-49); HEMOGLOBIN 9.6 GM/dL (11.7-16.9); LYMPH % 13.8 % (8-40); MCHC 34.9 g/dl (32.0-35.9); MEAN CELL VOLUME 91.6 fl (80-96); MONO % 6.8 % (3.8-10.2); NEUT % 77.9 % (42.8-82.8); PLATELET COUNT 689 10^3/uL (134-434); RBC 2.99 M/mm3 (4.00-5.60); RDW 13.1 % (11.9-15.9); WHITE BLOOD COUNT 7.9 K/mm3 (4.0-10.0)
[2021-09-25 09:12] LABS: ALBUMIN 2.5 g/dl (3.4-5.0)
[2021-09-25 09:13] LABS: BLOOD UREA NITROGEN 11.1 mg/dL (7-18); CALCIUM 8.7 mg/dL (8.5-10.1)
[2021-09-25 09:14] LABS: MAGNESIUM 1.9 mg/dL (1.8-2.4)
[2021-09-25 09:16] LABS: CREATININE 0.7 mg/dL (0.55-1.3)
[2021-09-25 09:17] LABS: BILIRUBIN,TOTAL 0.6 mg/dL (0.2-1); TOT PROT 6.6 g/dl (6.4-8.2)
[2021-09-25] MEDS: POLYETHYLENE GLYCOL (HEALTHYLAX) 3350 17 GM PACKET PO SCH (09:25)
[2021-09-25] MEDS: BACITRACIN 15 GM TUBE TOPICAL OINTMENT TP SCH (09:25)
[2021-09-25] MEDS: ENOXAPARIN NA (PORCINE) 40 MG/0.4 ML DISP.SYRIN SQ SCH (09:25)
[2021-09-25] MEDS: MAGNESIUM OXIDE 400 MG TABLET (FP) PO SCH (09:25)
[2021-09-25 15:02] VITALS: BP 133/66; PULSE 76; TEMP 97.9
[2021-09-25] MEDS ORDERED: AMOX TR/POT CLAV 500MG/125MG TABLETS (FP) PO SCH (17:30)
[2021-09-26 10:09] LABS: SARS-CoV-2 NAA Not Detected (Not Detected)
== END 2021-09-25 15:55 | DRG 872 ==
LOC: JER 22:16 → JERBED 09-17 03:30 → J5S 09-17 05:02
PROVIDERS: ADMIT Internal Medicine; ATTEND Nurse Practitioner Family
DX: A41.9 Sepsis, unspecified organism (principal); L03.116 Cellulitis of left lower limb; E87.1 Hypo-osmolality and hyponatremia; I10 Essential (primary) hypertension; Z28.310 Unvaccinated for COVID-19; E11.65 Type 2 diabetes mellitus with hyperglycemia; D64.9 Anemia, unspecified; E78.5 Hyperlipidemia, unspecified; Z79.84 Long term (current) use of oral hypoglycemic drugs; E86.0 Dehydration
CPT/HCPCS: 36415; 71045-TC-FY; 73700-TC-RT; 80048; 80053; 81003; 82553; 82728; 82803; 82962; 83036; 83540; 83550; 83605; 83735; 84100; 85025; 85027; 85045; 85610; 85651; 85730; 86140; 86850; 86900; 86901; 87040; 87086; 93005; 93010; 93971-TC; 94010; 97116-GP; 97162-GP; 99285-25; C9803-CS; U0003; U0005

== ENCOUNTER 2024-05-28 04:30 | Day surgery (SDC) | payer MEDICARE ==
[2024-05-20 11:40] VITALS: BMI 23.6
[2024-05-28 09:39] VITALS: TEMP 18
[2024-05-28 10:17] VITALS: BP 121/54; PULSE 63; RESP 18
== END 2024-05-28 10:00 | disposition home or self-care (01) ==
LOC: JASU-ENDO 04:30
PROVIDERS: ATTEND Internal Medicine Gastroenterology
PROC: 0DJD8ZZ Inspection of Lower Intestinal Tract, Via Natural or Artificial Opening Endoscopic (ICD-10-PCS; principal; 2024-05-28 08:30)
DX: Z12.11 Encounter for screening for malignant neoplasm of colon (principal)
CPT/HCPCS: 82962